=== PATIENT | female | born 1980 | race African-American/Black ===

== ENCOUNTER 2020-08-12 16:32 | Emergency (ER) | payer OTHER ==
[~2020-08-12] VITALS: Ht 175.3 cm; Wt 70.3 kg
[~2020-08-12 16:32] MED LIST: AMBIEN 5 MG TABL5 M1 PO; AUGMENTIN 875875 MG PO; CLEOCIN HCL150 MG PO; HUMALOG PE100 UNIT/M SC; HYDROCODONE-AP1 EAC6 PO; IBUPROFEN 600600 M1 PO; LANTUS100 UNIT/M SUBQ; NEURONTIN600 MG PO; PRAVACHOL20 MG PO; TRINATE TABLET1 TAB PO
[2020-08-12 18:47] LABS: URINE BILIRUBIN NEGATIVE (Negative); URINE BLOOD 3+ (Negative); URINE CLARITY CLOUDY; URINE COLOR YELLOW; URINE GLUCOSE-RANDOM* 3+ (Negative); URINE KETONES TRACE (Negative); URINE NITRITE-REFLEX NEGATIVE (Negative); URINE PROTEIN (DIPSTICK) 2+ (Negative); URINE SPECIFIC GRAVITY 1.025 (1.005-1.035); URINE UROBILINOGEN 0.2 E.U./dl (0.2-1.0)
[2020-08-12 18:51] LABS: URINE LEUKOCYTES-REFLEX 1+ (Negative)
[2020-08-12 18:54] LABS: BACTERIA-REFLEX >30 Many /HPF (None Seen); CASTS None Seen /LPF (None Seen); CRYSTALS None Seen /LPF (None Seen); SQUAMOUS 0-3 Few /LPF (0-3); URINE RBC 3-10 Few /HPF (0-2); URINE WBC-REFLEX >25 Many /HPF (0-5)
[2020-08-12] MEDS ORDERED: KEFLEX500 M2 PO (19:08)
[2020-08-12 20:30] VITALS: BP 100/67
== END 2020-08-12 20:36 | disposition home or self-care (01) ==
LOC: ER 16:32
PROVIDERS: Physician Assistant
DX: U07.1 COVID-19 (principal); J06.9 Acute upper respiratory infection, unspecified; E10.40 Type 1 diabetes mellitus with diabetic neuropathy, unspecified; N39.0 Urinary tract infection, site not specified; Z79.2 Long term (current) use of antibiotics; Z79.899 Other long term (current) drug therapy; Z79.4 Long term (current) use of insulin